=== PATIENT | female | born 1995 | race Caucasian/White ===

== ENCOUNTER 2022-06-29 00:49 | Inpatient (IN) | payer BC ==
[~2022-06-29 00:49] MED LIST: Bupivacaine 0.25% 10 ML SDV ONE; Phenylephrine 1% 10 MG/ML SDV ONE; ePHEDrine 50 MG/ML SDV ONE
[2022-06-29] MEDS ORDERED: Nalbuphine HCl 10 MG/ 1ML Amp IVPUSH PRN (05:05)
[2022-06-29] MEDS ORDERED: Sodium Chloride 0.9% 10 ML Syringe FLUSH PRN (05:05)
[2022-06-29] MEDS: Lactated Ringers 1,000 ML IV SCH ×3 (07:40→09:21)
[2022-06-29] MEDS ORDERED: fentaNYL 100 MCG/2 ML SDV EPIDUR PRN (07:42)
[2022-06-29] MEDS ORDERED: ePHEDrine 50 MG/ML SDV IVPUSH PRN (07:42)
[2022-06-29] MEDS ORDERED: diphenhydrAMINE 50 MG/ML SDV IVPUSH PRN (07:42)
[2022-06-29] MEDS: Bupivacaine/fentaNYL/NS 100 ML Bag EPIDUR PRN ×2 (08:05→16:38)
[2022-06-29] MEDS: Sodium Chloride 0.9% 10 ML Syringe FLUSH SCH (09:09)
[2022-06-29] MEDS ORDERED: Oxytocin/Lactated Ringers 10 UNIT/1,000 ML BAG IV SCH ×3 (12:00→16:30)
[2022-06-29] MEDS ORDERED: Docusate Sodium 100 MG Cap PO PRN (21:34)
[2022-06-29] MEDS ORDERED: Benzocaine/Menthol 20%-0.5% Spray 78 GM Cannister TOP PRN (21:34)
[2022-06-29] MEDS ORDERED: Witch Hazel Medicated Pads 40/Jar TOP PRN (21:34)
[2022-06-29] MEDS ORDERED: Acetaminophen 325 MG Tab PO PRN (21:34)
[2022-06-29] MEDS: Ibuprofen 600 MG Tab PO PRN (21:47)
[2022-06-30] MEDS: Prenatal Multivitamin with Calcium/Folic Acid/Iron Tab PO SCH (09:20)
[2022-06-30] MEDS: Ibuprofen 600 MG Tab PO PRN ×3 (09:21→20:36)
[2022-06-30] MEDS: Sodium Chloride 0.9% 10 ML Syringe FLUSH SCH (11:39)
[2022-07-01] MEDS: Ibuprofen 600 MG Tab PO PRN (08:12)
[2022-07-01] MEDS: Prenatal Multivitamin with Calcium/Folic Acid/Iron Tab PO SCH (08:12)
== END 2022-07-01 12:42 | disposition home or self-care (01) | DRG 560 ==
LOC: JD.OBCHECK 00:49 → JD.OB 00:52 → JD.OBCHECK 05:05 → JD.OB 05:06 → OBSVTOIN 20:04 → JD.OB 20:05
PROVIDERS: ADMIT Obstetrics & Gynecology; ATTEND Obstetrics & Gynecology
PROC: 10E0XZZ Delivery of Products of Conception, External Approach (ICD-10-PCS; principal; 2022-06-29)
PROC: 3E0R3BZ Introduction of Anesthetic Agent into Spinal Canal, Percutaneous Approach (ICD-10-PCS; 2022-06-29)
PROC: 0KQM0ZZ Repair Perineum Muscle, Open Approach (ICD-10-PCS; 2022-06-29)
DX: O48.0 Post-term pregnancy (principal); Z3A.40 40 weeks gestation of pregnancy; Z37.0 Single live birth; O69.81X0 Labor and delivery complicated by cord around neck, without compression, not applicable or unspecified; O70.1 Second degree perineal laceration during delivery
CPT/HCPCS: 36415; 51702; 59025; 59409; 85025; 86592; 86850; 86900; 86901; A9270-GY; J2370; J2590; J3010; J3490; J7120

== ENCOUNTER 2024-05-06 19:23 | Inpatient (IN) | payer BC ==
[~2024-05-06 19:23] MED LIST changes: -Phenylephrine 1% 10 MG/ML SDV ONE; +Sodium Chloride 0.9% 10 ML SDV ONE; -ePHEDrine 50 MG/ML SDV ONE
[2024-05-06] MEDS: Lactated Ringers 1,000 ML IV SCH (19:45)
[2024-05-06] MEDS ORDERED: Nalbuphine 10 MG/ML Syringe IVPUSH PRN (19:48)
[2024-05-06] MEDS ORDERED: Ondansetron 4 MG/2 ML SDV IVPUSH PRN (19:48)
[2024-05-06] MEDS ORDERED: Sodium Chloride 0.9% 10 ML Syringe FLUSH PRN (19:48)
[2024-05-06] MEDS ORDERED: Nalbuphine HCl 10 MG/ 1ML Amp IVPUSH PRN (19:57)
[2024-05-06 20:02] LABS: BASOPHILS PERCENT AUTO 0.3 % (0.0-1.0); EOSINOPHILS ABSOLUTE AUTO 0.1 K/mm3 (0.0-0.4); HEMATOCRIT 35.9 % (37.0-47.0); IMMATURE GRAN ABSOLUTE AUTO 0.07 K/mm3 (0.00-0.05); IMMATURE GRAN PERCENT AUTO 0.6 % (0.0-0.4); LYMPHOCYTES ABSOLUTE AUTO 1.6 K/mm3 (1.0-4.8); LYMPHOCYTES PERCENT AUTO 13.7 % (24.0-44.0); MEAN CORPUSCULAR HEMOGLOBIN 29.4 pg (28.0-32.0); MEAN CORPUSCULAR HGB CONC 33.4 g/dl (32.0-36.0); MEAN PLATELET VOLUME 9.6 fl (9.4-12.3); MONOCYTES ABSOLUTE AUTO 0.7 K/mm3 (0.0-0.8); MONOCYTES PERCENT AUTO 6.2 % (0.0-8.0); NEUTROPHILS PERCENT AUTO 78.2 % (41.0-71.0); PLATELET COUNT,PLT 219 K/mm3 (150-400); RED BLOOD CELL COUNT 4.08 M/mm3 (4.10-5.30); WHITE BLOOD CELL COUNT,WBC 11.49 K/mm3 (3.9-11.3)
[2024-05-06] MEDS ORDERED: diphenhydrAMINE 50 MG/ML SDV IVPUSH PRN (20:13)
[2024-05-06] MEDS: fentaNYL 100 MCG/2 ML SDV EPIDUR PRN (20:25)
[2024-05-06] MEDS: Bupivacaine/fentaNYL/NS 100 ML Bag EPIDUR PRN (20:25)
[2024-05-06] MEDS: ePHEDrine 50 MG/ML SDV IVPUSH PRN (20:50)
[2024-05-06] MEDS: Oxytocin/0.9 % Sodium Chloride 30 UNIT/500 ML BAG IV SCH (23:30)
[2024-05-06] MEDS: Lidocaine 1% 50 ML MDV INJECT PRN (23:41)
[2024-05-07] MEDS ORDERED: Docusate Sodium 100 MG Cap PO PRN (00:07)
[2024-05-07] MEDS: Acetaminophen 325 MG Tab PO SCH (03:08)
[2024-05-07] MEDS: Benzocaine/Menthol 20%-0.5% Spray 78 GM Cannister TOP PRN (04:54)
[2024-05-07] MEDS: Witch Hazel Medicated Pads 40/Jar TOP PRN (04:54)
[2024-05-07] MEDS: Ibuprofen 600 MG Tab PO PRN (16:30)
== END 2024-05-08 11:15 | disposition home or self-care (01) | DRG 560 ==
LOC: JD.OBCHECK 19:23 → JD.OB 19:25 → JD.OBCHECK 19:47 → JD.OB 19:48 → OBSVTOIN 23:28 → JD.OB 23:29
PROVIDERS: ADMIT Obstetrics & Gynecology; ATTEND Obstetrics & Gynecology
PROC: 10E0XZZ Delivery of Products of Conception, External Approach (ICD-10-PCS; principal; 2024-05-06)
PROC: 10907ZC Drainage of Amniotic Fluid, Therapeutic from Products of Conception, Via Natural or Artificial Opening (ICD-10-PCS; 2024-05-06)
PROC: 0KQM0ZZ Repair Perineum Muscle, Open Approach (ICD-10-PCS; 2024-05-06)
PROC: 3E0R3BZ Introduction of Anesthetic Agent into Spinal Canal, Percutaneous Approach (ICD-10-PCS; 2024-05-06)
PROC: 00HU33Z Insertion of Infusion Device into Spinal Canal, Percutaneous Approach (ICD-10-PCS; 2024-05-06)
DX: O70.1 Second degree perineal laceration during delivery (principal); Z37.0 Single live birth; Z3A.39 39 weeks gestation of pregnancy; Z90.10 Acquired absence of unspecified breast and nipple
CPT/HCPCS: 36415; 51701; 59025; 59409; 85025; 86592; A9270-GY; C1758; J0665; J2001; J3010; J3490; J7120